=== PATIENT | male | born 1975 | race African-American/Black ===

== ENCOUNTER 2016-12-27 14:31 | Emergency (ER) | payer OTHER ==
[2016-12-27 14:37] VITALS: TEMP 98.3; BMI 38.0
[2016-12-27] MEDS ORDERED: LIDOCAINE HCL 2% JELLY (5 ML/TUBE) ONE (14:58)
[2016-12-27] MEDS ORDERED: AZITHROMYCIN 1 GM PACKET PO ONE (16:28)
[2016-12-27] MEDS ORDERED: AZITHROMYCIN 250 MG TABLET (FP) ONE (17:00)
[2016-12-27] MEDS ORDERED: cefTRIAXone SODIUM 1 GM VIAL ONE (17:00)
[2016-12-27] MEDS ORDERED: LIDOCAINE HCL/PF 1% SDV 5ML VIAL ONE (17:00)
[2016-12-27] MEDS ORDERED: AZITHROMYCIN 1 GM PACKET ONE (17:04)
[2016-12-27 17:05] LABS: URINE APPEARANCE CLOUDY; URINE BILIRUBIN NEGATIVE (NEGATIVE); URINE COLOR RED; URINE GLUCOSE (UA) NEGATIVE (NEGATIVE); URINE KETONE NEGATIVE (NEGATIVE); URINE NITRITE NEGATIVE (NEGATIVE); URINE UROBILINOGEN NEGATIVE E.U./dl (0.2-1.0)
[2016-12-27 17:07] LABS: BASOPHIL 0.6 % (0-2.0); EOSINOPHIL 1.6 % (0-4.5); MCH 30.5 pg (25.7-33.7); MCHC 34.5 g/dl (32.0-35.9); MEAN CELL VOLUME 88.4 fl (80-96); MEAN PLT VOLUME 9.6 fl (7.5-11.1); NEUTROPHILS 67.9 % (42.8-82.8); PLATELET COUNT 190 K/MM3 (134-434); WHITE BLOOD COUNT 10.9 K/mm3 (4.0-10.0)
[2016-12-27 17:08] LABS: URINE BLOOD 3+ (NEGATIVE); URINE LEUK ESTERASE 2+ (NEGATIVE); URINE PROTEIN 1+ (NEGATIVE)
[2016-12-27 17:25] LABS: INR 1.12 (0.82-1.09); PROTHROMBIN TIME (PATIENT) 12.3 SEC (9.98-11.88)
[2016-12-27 17:42] LABS: ALBUMIN 3.7 g/dl (3.4-5.0); ANION GAP 14 (8-16); CALCIUM 8.7 mg/dL (8.5-10.1); CO2 23 mmol/L (21-32); CREATININE 0.9 mg/dL (0.7-1.3); GLUCOSE,RANDOM 140 mg/dL (74-106); SGOT/AST 15 U/L (15-37); SGPT/ALT 16 U/L (12-78)
[2016-12-27 17:43] LABS: ALK PHOS 90 U/L (45-117); BILIRUBIN,TOTAL 0.3 mg/dL (0.2-1.0); TOT PROT 7.1 g/dl (6.4-8.2)
--- NOTE | 2016-12-27 17:45 | PDOC ---
History of Present Illness - General History Source: Patient Exam Limitations: No Limitations - History of Present Illness Initial Comments: 12/27/16 17:45 The patient is a 41 year old male with pmhx of HIV positive who presents to the ED with unable to void since last night. Patient reports having dysuria and developed hematuria, Patient states that he was not able to urinate. He states that he is doing well on his HIV medication. He denies fever, chills, cough, nausea, vomiting and diarrhea. He denies urinary frequency. <Emmanuelle Victor - Last Filed: 12/27/16 17:45> <Hakeem Vanessa - Last Filed: 12/27/16 18:42> - General Chief Complaint: Urinary Problem Stated Complaint: PROBLEM URINATING Time Seen by Provider: 12/27/16 15:04 Past History <Emmanuelle Victor - Last Filed: 12/27/16 17:45> - Past Medical History Anemia: Yes HTN: Yes (non compliant) - Surgical History Abdominal Surgery: Yes ("SMALL BOWEL INFECTION"?) - Psycho/Social/Smoking Cessation Hx Suicidal Ideation: No Smoking History: Never smoked <Hakeem Vanessa - Last Filed: 12/27/16 18:42> - Past Medical History Allergies/Adverse Reactions: Allergies Allergy/AdvReac Type Severity Reaction Status Date / Time No Known Allergies Allergy Verified 12/27/16 14:33 Home Medications: Ambulatory Orders NK [No Known Home Medication] 04/04/16 Review of Systems - Review of Systems Able to Perform ROS?: Yes Comments:: 12/27/16 17:46 GENERAL/CONSTITUTIONAL: No fever or chills. No weakness. HEAD, EYES, EARS, NOSE AND THROAT: No change in vision. No ear pain or discharge. No sore throat. CARDIOVASCULAR: No chest pain or shortness of breath. RESPIRATORY: No cough, wheezing, or hemoptysis. GASTROINTESTINAL: No nausea, vomiting, diarrhea or constipation. GENITOURINARY: +dysuria, +hematuria, +decreased urinary output. No frequency MUSCULOSKELETAL: No joint or muscle swelling or pain. No neck or back pain. SKIN: No rash NEUROLOGIC: No headache, vertigo, loss of consciousness, or change in strength/ sensation. ENDOCRINE: No increased thirst. No abnormal weight change. HEMATOLOGIC/LYMPHATIC: No anemia, easy bleeding, or history of blood clots. ALLERGIC/IMMUNOLOGIC: No hives or skin allergy. <Emmanuelle Victor - Last Filed: 12/27/16 17:45> *Physical Exam - Vital Signs Last Vital Signs Temp Pulse Resp BP Pulse Ox 98.3 F 90 18 152/80 100 12/27/16 14:34 12/27/16 14:34 12/27/16 14:34 12/27/16 14:34 12/27/16 14:34 - Physical Exam Comments: 12/27/16 17:47 GENERAL: Awake, alert, and fully oriented, in no acute distress HEAD: No signs of trauma EYES: PERRLA, EOMI, sclera anicteric, conjunctiva clear ENT: Auricles normal inspection, hearing grossly normal, nares patent, oropharynx clear without exudates. Moist mucosa NECK: Normal ROM, supple, no lymphadenopathy, JVD, or masses LUNGS: Breath sounds equal, clear to auscultation bilaterally. No wheezes, and no crackles HEART: Regular rate and rhythm, normal S1 and S2, no murmurs, rubs or gallops ABDOMEN: Soft, nontender, normoactive bowel sounds. No guarding, no rebound. No masses EXTREMITIES: Normal range of motion, no edema. No clubbing or cyanosis. No cords, erythema, or tenderness NEUROLOGICAL: Cranial nerves II through XII grossly intact. Normal speech, normal gait SKIN: Warm, Dry, normal turgor, no rashes or lesions noted. <Emmanuelle Victor - Last Filed: 12/27/16 17:45> - Vital Signs Last Vital Signs Temp Pulse Resp BP Pulse Ox 98.3 F 90 18 152/80 100 12/27/16 14:34 12/27/16 14:34 12/27/16 14:34 12/27/16 14:34 12/27/16 14:34 <Hakeem Vanessa - Last Filed: 12/27/16 18:42> ED Treatment Course - LABORATORY CBC & Chemistry Diagram: 12/27/16 16:50 12/27/16 16:50 - ADDITIONAL ORDERS Additional order review: Laboratory Results 12/27/16 16:50 Urine Color Red Urine Appearance Cloudy Urine pH 6.0 Ur Specific [place] 1.006 Urine Protein 1+ H Urine Glucose (UA) Negative Urine Ketones Negative Urine Blood 3+ H Urine Nitrite Negative Urine Bilirubin Negative Urine Urobilinogen Negative Ur Leukocyte Esterase 2+ H 12/27/16 16:50 RBC 4.81 MCV 88.4 MCHC 34.5 RDW 14.0 MPV 9.6 Neutrophils % 67.9 Lymphocytes % 21.5 Monocytes % 8.4 Eosinophils % 1.6 Basophils % 0.6 - Medications Given in the ED: ED Medications Discontinued Medications Generic Name Dose Route Start Last Admin Trade Name Freq PRN Reason Stop Dose Admin Azithromycin 1 gm 12/27/16 16:28 12/27/16 17:17 Zithromax - PO 12/27/16 16:29 1 gm ONCE ONE Administration Ceftriaxone Sodium 250 mg 12/27/16 16:28 12/27/16 17:17 Rocephin - IM 12/27/16 16:29 250 mg ONCE ONE Administration <Emmanuelle Victor - Last Filed: 12/27/16 17:45> - LABORATORY CBC & Chemistry Diagram: 12/27/16 16:50 12/27/16 16:50 - ADDITIONAL ORDERS Additional order review: Laboratory Results 12/27/16 16:50 Urine Color Red Urine Appearance Cloudy Urine pH 6.0 Ur Specific [place] 1.006 Urine Protein 1+ H Urine Glucose (UA) Negative Urine Ketones Negative Urine Blood 3+ H Urine Nitrite Negative Urine Bilirubin Negative Urine Urobilinogen Negative Ur Leukocyte Esterase 2+ H 12/27/16 16:50 RBC 4.81 MCV 88.4 MCHC 34.5 RDW 14.0 MPV 9.6 Neutrophils % 67.9 Lymphocytes % 21.5 Monocytes % 8.4 Eosinophils % 1.6 Basophils % 0.6 - Medications Given in the ED: ED Medications Discontinued Medications Generic Name Dose Route Start Last Admin Trade Name Freq PRN Reason Stop Dose Admin Azithromycin 1 gm 12/27/16 16:28 12/27/16 17:17 Zithromax - PO 12/27/16 16:29 1 gm ONCE ONE Administration Ceftriaxone Sodium 250 mg 12/27/16 16:28 12/27/16 17:17 Rocephin - IM 12/27/16 16:29 250 mg ONCE ONE Administration <Hakeem Vanessa - Last Filed: 12/27/16 18:42> Medical Decision Making - Medical Decision Making 12/27/16 17:45 The patient is a 41 year old male with pmhx of HIV positive who presents to the ED with unable to void since last night. Patient reports having dysuria and developed hematuria. Will order UA and labs. Patient will be reassessed after the results are back. <Emmanuelle Victor - Last Filed: 12/27/16 17:45> *DC/Admit/Observation/Transfer - Attestations Scribe Attestion: 12/27/16 17:47 Documentation prepared by MEGHA Espinoza, acting as medical insurance coding specialist for Hakeem Vanessa MD/. <Emmanuelle Victor - Last Filed: 12/27/16 17:45> - Discharge Dispostion Admit: No - Attestations Physician Attestion: 12/27/16 17:45 I, Dr. Hakeem Vanessa, attest that this document has been prepared under my direction and personally reviewed by me in its entirety. I further attest, that it accurately reflects all work, treatment, procedures and medical decision -making performed by me. <Hakeem Vanessa - Last Filed: 12/27/16 18:42> Diagnosis at time of Disposition: Hematuria UTI (urinary tract infection) Qualifiers: Urinary tract infection type: site unspecified Hematuria presence: with hematuria Qualified Code(s): N39.0 - Urinary tract infection, site not specified - Discharge Dispostion Disposition: HOME Condition at time of disposition: Good - Patient Instructions Printed Discharge Instructions: DI for Hematuria, DI for Urinary Retention in Men, DI for Urinary Tract Infection (UTI) Additional Instructions: Mr Lara- You definitely have a bladder or prostate infection. You got antibiotics here for both, but you need to take levaquin 500 mg once daily for ten days. Drink at least 5 twenty ounce bottles of water a day while you are on this antibiotic. Follow up with your Urologist next week to have the rowe removed. Best, DR. Hakeem Vanessa
[2016-12-27 17:56] LABS: URINE BACTERIA FEW /hpf (NONE SEEN); URINE MUCUS RARE; URINE RBC 155 /hpf (0-3); URINE WBC 27 /hpf (3-5); YEAST FEW
[2016-12-27 19:16] VITALS: BP 125/73; PULSE 80
== END 2016-12-27 18:35 | disposition home or self-care (01) ==
LOC: JER 14:31
DX: N39.0 Urinary tract infection, site not specified (principal); R31.9 Hematuria, unspecified; Z21 Asymptomatic human immunodeficiency virus [HIV] infection status
CPT/HCPCS: 36415; 80053; 81003; 81015; 85025; 85610; 86593; 87086; 87491; 87591; 96372; 99283-25